=== PATIENT | female | born 1985 | race Asian ===

== ENCOUNTER 2017-10-03 17:00 | Inpatient (IN) | payer SELFPAY ==
[~2017-10-03] VITALS: Ht 165 cm; Wt 68.9 kg
[2017-10-03] MEDS ORDERED: LACTATED RINGERS 1,000 ML IV SCH (17:17)
[2017-10-03] MEDS ORDERED: IBUPROFEN 800 MG TAB PO PRN ×2 (17:20→21:05)
[2017-10-03 17:59] LABS: BASOPHILS # (AUTO) 0.1 K/uL (0.00-0.22); BASOPHILS % (AUTO) 1.1 % (0.0-2.0); EOSINOPHILS # (AUTO) 0.1 K/uL (0-0.4); EOSINOPHILS % (AUTO) 0.6 % (0.0-4.0); HEMATOCRIT 43.5 % (36-48); HEMOGLOBIN 14.4 g/dL (12.0-16.0); LYMPHOCYTES # (AUTO) 1.3 K/uL (2.5-16.5); LYMPHOCYTES % (AUTO) 13.9 % (20.5-51.1); MEAN CORPUSCULAR HEMOGLOBIN 31 pg (27-31); MEAN CORPUSCULAR HGB CONC 33 g/dL (33-37); MEAN CORPUSCULAR VOLUME 92 fL (80-94); MONOCYTES # (AUTO) 0.4 K/uL (0.8-1.0); MONOCYTES % (AUTO) 4.1 % (1.7-9.3); NEUTROPHILS # (AUTO) 7.3 K/uL (1.8-7.7); NEUTROPHILS % (AUTO) 80.3 % (42.2-75.2); PLATELET COUNT (AUTO) 177 K/uL (140-450); RED BLOOD CELL COUNT(AUTO) 4.71 MIL/uL (4.20-5.40); RED CELL DISTRIBUTION WIDTH 16.2 % (11.6-13.7); WHITE BLOOD COUNT (AUTO) 9.2 K/uL (4.8-10.8)
[2017-10-03 18:10] LABS: APPEARANCE,URINE CLEAR (CLEAR); BILIRUBIN,URINE NEGATIVE (NEGATIVE); BLOOD, URINE 1+ (NEGATIVE); COLOR,URINE YELLOW (YELLOW); LEUKOCYTE ESTERASE ,URINE NEGATIVE (NEGATIVE); NITRITE, URINE NEGATIVE (NEGATIVE); UGLUCOSE NEGATIVE (NEGATIVE)
[2017-10-03 18:19] LABS: RBC,URINE 3-10 (FEW) /HPF (0-5); WBC,URINE 0-5 (RARE) /HPF (0-5)
[2017-10-03 18:29] LABS: ALBUMIN 2.9 g/dL (3.4-5.0); ANION GAP 16.9 (8-16); CREATININE 0.5 mg/dL (0.6-1.3); POTASSIUM 3.9 mmol/L (3.5-5.1); TOTAL BILIRUBIN 0.9 mg/dL (0.0-1.0)
[2017-10-03] MEDS ORDERED: METHYLERGONOVINE 0.2 MG/ML AMP ONE (20:04)
[2017-10-03] MEDS ORDERED: TRIAMCINOLONE 40 MG/ML 5ML VIAL ONE (20:04)
[2017-10-03] MEDS ORDERED: OXYTOCIN 10 UNITS/ML VIAL ONE (20:04)
[2017-10-03 20:20] VITALS: BP 100/61
[2017-10-03] MEDS ORDERED: OXYTOCIN 10 UNITS/ML VIAL IV ONE (20:45)
[2017-10-03] MEDS ORDERED: ePHEDrine 50 MG/ML VIAL IV ONE (20:45)
[2017-10-03] MEDS ORDERED: BUPIVACAINE-MPF 0.75% 10 ML VIAL INJ ONE (20:45)
[2017-10-03] MEDS ORDERED: fentaNYL 0.05 MG/ML VIAL ONE (21:02)
[2017-10-03] MEDS ORDERED: MORPHINE PRES FREE 10 MG/10 ML AMP IV ONE (21:03)
[2017-10-03] MEDS ORDERED: TEMAZEPAM 15 MG CAP PO PRN (21:05)
[2017-10-03] MEDS ORDERED: TRIMETHOBENZAMIDE 200 MG/2 ML SYR IM PRN (21:05)
[2017-10-03] MEDS ORDERED: MEASLES, MUMPS, AND RUBELLA 1 VIAL SQVAC PRN (21:05)
[2017-10-03] MEDS ORDERED: METHYLERGONOVINE 0.2 MG/ML AMP IM PRN (21:05)
[2017-10-03] MEDS ORDERED: oxyCODONE/APAP 5/325 MG 1 TAB TAB PO PRN (21:05)
[2017-10-03] MEDS ORDERED: KETOROLAC 60 MG/2 ML VIAL IM PRN (21:15)
[2017-10-03] MEDS ORDERED: NALOXONE 0.4 MG/ML VIAL IVP PRN ×3 (21:15)
[2017-10-03] MEDS ORDERED: diphenhydrAMINE 50 MG/ML VIAL IVP PRN (21:15)
[2017-10-03] MEDS ORDERED: NALBUPHINE 10 MG/ML AMP IVP PRN (21:15)
[2017-10-03] MEDS ORDERED: ONDANSETRON 4 MG/2 ML VIAL IVP PRN ×2 (21:15)
[2017-10-03] MEDS ORDERED: diphenhydrAMINE 50 MG/ML VIAL ONE (21:16)
[2017-10-03] MEDS ORDERED: OXYTOCIN 20 UNITS/LR PREMIX 1,000 ML IV ONE (21:16)
[2017-10-03] MEDS ORDERED: ONDANSETRON 4 MG/2 ML VIAL ONE (21:52)
[2017-10-04 06:11] LABS: HEMATOCRIT 35.9 % (36-48); MEAN CORPUSCULAR HEMOGLOBIN 31 pg (27-31); MEAN CORPUSCULAR HGB CONC 33 g/dL (33-37); MEAN CORPUSCULAR VOLUME 93 fL (80-94); PLATELET COUNT (AUTO) 163 K/uL (140-450); RED BLOOD CELL COUNT(AUTO) 3.88 MIL/uL (4.20-5.40); RED CELL DISTRIBUTION WIDTH 15.6 % (11.6-13.7); WHITE BLOOD COUNT (AUTO) 11.7 K/uL (4.8-10.8)
[2017-10-04] MEDS: OXYTOCIN 20 UNITS in LACTATED RINGERS 1,000 ML IV SCH ×2 (06:26→18:18)
[2017-10-04] MEDS ORDERED: OXYTOCIN 10 UNITS/ML VIAL ONE (06:27)
[2017-10-04 07:24] LABS: LYMPHOCYTES % (MANUAL) 7 % (20-46); MONOCYTES % (MANUAL) 6 % (5-12)
--- NOTE | 2017-10-04 09:13 | NUR ---
PATIENT HAS BEEN SCREENED AND CATEGORIZED LOW NUTRITION RISK. PATIENT WILL BE SEEN WITHIN 7 DAYS OF ADMISSION. 10/10/[address]
[2017-10-04] MEDS ORDERED: OXYTOCIN 20 UNITS in LACTATED RINGERS 1,000 ML IV SCH (18:15)
[2017-10-04] MEDS ORDERED: DOCUSATE SOD/SENNA 50/8.6 MG 1 TAB PO SCH (21:00)
[2017-10-04] MEDS: HYDROcodone/APAP 5/325 MG 1 TAB TAB PO PRN (21:06)
[2017-10-04] MEDS: SIMETHICONE 80 MG TAB.CHEW PO PRN (21:06)
[2017-10-05] MEDS: HYDROcodone/APAP 5/325 MG 1 TAB TAB PO PRN (15:07)
[2017-10-05] MEDS: SIMETHICONE 80 MG TAB.CHEW PO PRN (21:03)
[2017-10-06] MEDS ORDERED: IBUP-2213 PO (09:33)
[2017-10-06] MEDS ORDERED: INFLUENZA VIRUS VACCINE QUAD 0.5 ML SYR IMVAC SCH (23:55)
== END 2017-10-06 15:15 | disposition home or self-care (01) | DRG 766 ==
LOC: MLD 17:00 → OBSVTOIN 17:52 → MFCC 22:40
PROVIDERS: ADMIT Obstetrics & Gynecology; ATTEND Obstetrics & Gynecology
PROC: 10D00Z1 Extraction of Products of Conception, Low, Open Approach (ICD-10-PCS; principal; 2017-10-03 19:00)
DX: O34.211 Maternal care for low transverse scar from previous cesarean delivery (principal); O69.81X0 Labor and delivery complicated by cord around neck, without compression, not applicable or unspecified; Z37.0 Single live birth; Z3A.38 38 weeks gestation of pregnancy
CPT/HCPCS: 36415; 51702; 80053; 81001; 85025; 86592; 86886; 86900; 86901; G0378; J0690; J1200; J2210; J2270; J2405; J2590; J3010; J3301; J3490; J7060; J7120